=== PATIENT | female | born 1935 | race Caucasian/White ===

== ENCOUNTER → 2016-10-13 | Outpatient (REF) | payer MEDICARE ==
[2016-10-13 14:09] LABS: PERCENT SATURATION 7.5 % (13.2-37.4)
== END ==
LOC: M LAB REF 13:17
PROVIDERS: ATTEND Internal Medicine Nephrology
DX: D50.9 Iron deficiency anemia, unspecified (principal)

== ENCOUNTER → 2016-10-14 | Outpatient (REF) | payer MEDICARE ==
[2016-10-14 14:42] LABS: PERCENT SATURATION 28.2 % (13.2-37.4)
== END ==
LOC: M LAB REF 13:34
PROVIDERS: ATTEND Internal Medicine
DX: D64.9 Anemia, unspecified (principal)

== ENCOUNTER 2016-10-28 09:04 | Outpatient (CLI) | payer MEDICARE ==
[~2016-10-28] VITALS: Ht 149.9 cm; Wt 62.7 kg
[2016-10-28] MEDS ORDERED: IRON SUCROSE 25 MG in NS 50 ML IV ONE (09:30)
[2016-10-28] MEDS ORDERED: IRON SUCROSE 475 MG in NS 250 ML IV ONE (10:30)
[2016-10-28] MEDS ORDERED: NOVOINJ3 SC (14:17)
[2016-10-28] MEDS ORDERED: LASI40TA PO (14:17)
[2016-10-28] MEDS ORDERED: CHRO200C PO (14:17)
[2016-10-28] MEDS ORDERED: CALCTAB75 PO (14:17)
[2016-10-28] MEDS ORDERED: RENV0.8P PO (14:17)
[2016-10-28] MEDS ORDERED: LANTINJ4 SC (14:17)
[2016-10-28] MEDS ORDERED: FERR1CAP2 PO (14:17)
[2016-10-28] MEDS ORDERED: SYNT112T2 PO (14:17)
[2016-10-28] MEDS ORDERED: ASPI81TA85 PO (14:17)
[2016-10-28] MEDS ORDERED: CALC1CAP31 PO (14:17)
== END 2016-10-28 15:00 | disposition home or self-care (01) ==
LOC: M INFU 09:04
PROVIDERS: ATTEND Internal Medicine Nephrology
DX: D50.9 Iron deficiency anemia, unspecified (principal); Z79.899 Other long term (current) drug therapy; Z79.4 Long term (current) use of insulin; Z79.82 Long term (current) use of aspirin; Z88.2 Allergy status to sulfonamides; Z88.1 Allergy status to other antibiotic agents
CPT/HCPCS: 96365; 96366; J1756

== ENCOUNTER → 2016-12-16 | Outpatient (CLI) | payer MEDICARE ==
[~2016-12-16] MED LIST: ASPI81TA85 PO; CALC1CAP31 PO; CALCTAB75 PO; CHRO200C PO; FERR1CAP2 PO; LANTINJ4 SC; LASI40TA PO; NOVOINJ3 SC; RENV0.8P PO; SYNT112T2 PO
--- NOTE | 2016-12-16 13:54 | REP ---
MRA CAROTIDS WITHOUT CONTRAST: HISTORY: Carotid occlusion. Unenhanced 2D [id number] MR angiography was performed at the level of the carotid bifurcations. The distal right common carotid artery and origins of the right external and internal carotid arteries are normal. There are no atherosclerotic lesions. There is severe stenosis of 90% of the distal left common carotid artery. There is severe stenosis and 90% of the left internal carotid artery at its origin. There is moderate stenosis of 60% of the left external carotid artery at its origin. The vertebral arteries are patent. The right vertebral artery is dominant. IMPRESSION: 1. There is severe stenosis of 90% of the distal left common carotid artery. 2. There is severe stenosis of 90% of the left internal carotid artery at its origin. Signed by Ramy Herring MD 12/16/2016 02:01 P
== END ==
LOC: M RAD 12:15
PROVIDERS: ATTEND Surgery Vascular Surgery
DX: I65.22 Occlusion and stenosis of left carotid artery (principal)

== ENCOUNTER 2017-03-08 10:18 | Emergency (ER) | payer MEDICARE ==
[~2017-03-08] VITALS: Ht 147.3 cm; Wt 60.1 kg
[2017-03-08] MEDS ORDERED: TYLE325T5 PO (10:40)
[2017-03-08] MEDS ORDERED: ONDANSETRON 4MG/2ML VIAL (J2405) IV ONE (11:15)
[2017-03-08] MEDS ORDERED: MORPHINE 2 MG/ML 1ML SYRINGE IV ONE ×2 (11:15→13:30)
[2017-03-08 11:29] LABS: BASO % 0.3 % (0.0-1.0); EOS # 0.2 K/mm3 (0.0-0.50); EOS % 2.4 % (0.0-3.0); LARGE UNSTAINED CELL # 0.1 K/mm3 (0.0-0.4); LARGE UNSTAINED CELL % 1.1 % (0.0-4.0); LYMPH # 0.8 K/mm3 (1.5-4.5); LYMPH % 7.4 % (24.0-44.0); MEAN CORPUSCULAR HEMOGLOBIN 30.9 pg (27.0-33.0); MEAN CORPUSCULAR HGB CONC 32.5 g/dl (32.0-36.5); MONO # 0.6 K/mm3 (0.0-0.8); MONO % 6.3 % (0.0-5.0); NEUTROPHILS # 7.3 K/mm3 (1.8-7.7); NEUTROPHILS % 82.6 % (36.0-66.0); PLATELET COUNT, AUTOMATED 198 k/mm3 (150-450); RED CELL DISTRIBUTION WIDTH 12.6 % (11.5-14.5); WHITE BLOOD COUNT 8.9 K/mm3 (4.0-10.0)
[2017-03-08 11:54] LABS: ALBUMIN 3.8 GM/DL (3.2-5.2); ALBUMIN/GLOBULIN RATIO 1.09 (1.00-1.93); ALKALINE PHOSPHATASE 84 U/L (45-117); ALT/SGPT 17 U/L (12-78); ANION GAP 9 MEQ/L (8-16); AST/SGOT 14 U/L (15-37); BILIRUBIN,DIRECT < 0.1 MG/DL (0.0-0.2); BILIRUBIN,TOTAL 0.5 MG/DL (0.2-1.0); BLOOD UREA NITROGEN 36 MG/DL (7-18); CALCIUM LEVEL 9.1 MG/DL (8.8-10.2); CARBON DIOXIDE LEVEL 25 MEQ/L (21-32); CHLORIDE LEVEL 104 MEQ/L (98-107); CREATININE FOR GFR 1.91 MG/DL (0.55-1.02); GLOMERULAR FILTRATION RATE 26.8 (>32); GLUCOSE, FASTING 170 MG/DL (83-110); POTASSIUM SERUM 4.3 MEQ/L (3.5-5.1); SODIUM LEVEL 138 MEQ/L (136-145); TOTAL PROTEIN 7.3 GM/DL (6.4-8.2)
--- NOTE | 2017-03-08 12:31 | REP ---
CT ABDOMEN AND PELVIS WITHOUT IV CONTRAST: CT abdomen and pelvis performed without oral or IV contrast. Sagittal and coronal reconstruction images are performed. There are chronic fibrotic changes of the lung bases. Calcified granuloma is seen in the right middle lobe. The liver, gallbladder, adrenals and pancreas are grossly unremarkable. The spleen demonstrates a nodule probably representing a hemangioma measuring 2 cm in diameter. A couple of tiny calcifications are seen at the margins of the nodule. There is no hydronephrosis of either kidney. Proximal ureters are not dilated. No renal stones are seen. There are bilateral hip prosthesis causing adjacent streak artifact obscuring inferior pelvic structures including the bladder and distal ends of the ureters. There are atherosclerotic calcifications of the abdominal aorta without aneurysm. No adenopathy is seen. No free air or free fluid is seen. There is sigmoid and left colonic diverticulosis. No thickening is seen of the visualized bowel loops. There is a large hiatal hernia. IMPRESSION: Large hiatal hernia. Probably splenic hemangioma. No renal stones and no hydroureteronephrosis. However, the distal ends of the ureters and the bladder are obscured by adjacent metallic artifact from metallic hip prostheses. Colonic diverticulosis. No other acute abnormality identified. Signed by Cristian López MD 03/08/2017 04:26 P
[2017-03-08] MEDS ORDERED: PERC5TAB12 PO (13:45)
[2017-03-08 14:31] VITALS: BP 134/63
--- NOTE | 2017-03-09 10:57 | ED PDOC ---
Post-Departure Follow-Up dr orozco faxed formal report of ct abd/p for fu peñag Delvis Macario MD Mar 09, 2017 10:57
== END 2017-03-08 14:33 | disposition home or self-care (01) ==
LOC: M ED 10:18
DX: R10.9 Unspecified abdominal pain (principal); N18.9 Chronic kidney disease, unspecified; E11.9 Type 2 diabetes mellitus without complications; Z86.73 Personal history of transient ischemic attack (TIA), and cerebral infarction without residual deficits
CPT/HCPCS: 74176; 80048; 80076; 81001; 83690; 85025; 87086; 93041; 94760; 96374; 96375; 96376; 99284; J2405

== ENCOUNTER 2017-04-08 20:20 | Emergency (ER) | payer MEDICARE ==
[~2017-04-08] VITALS: Ht 147.3 cm; Wt 60.0 kg
[~2017-04-08 20:20] MED LIST changes: +PERC5TAB12 PO; +TYLE325T5 PO
[2017-04-08] MEDS ORDERED: MECLIZINE 25 MG TABLET PO ONE (21:15)
[2017-04-08 22:33] LABS: BASO % 0.5 % (0.0-1.0); EOS # 0.1 K/mm3 (0.0-0.50); LARGE UNSTAINED CELL # 0.1 K/mm3 (0.0-0.4); LARGE UNSTAINED CELL % 1.3 % (0.0-4.0); LYMPH # 0.6 K/mm3 (1.5-4.5); LYMPH % 10.1 % (24.0-44.0); MEAN CORPUSCULAR HEMOGLOBIN 30.8 pg (27.0-33.0); MEAN CORPUSCULAR HGB CONC 33.6 g/dl (32.0-36.5); MEAN CORPUSCULAR VOLUME 91.6 fl (80.0-96.0); MONO # 0.4 K/mm3 (0.0-0.8); MONO % 6.9 % (0.0-5.0); NEUTROPHILS # 4.7 K/mm3 (1.8-7.7); NEUTROPHILS % 80.1 % (36.0-66.0); PLATELET COUNT, AUTOMATED 211 k/mm3 (150-450); RED CELL DISTRIBUTION WIDTH 12.4 % (11.5-14.5); WHITE BLOOD COUNT 5.8 K/mm3 (4.0-10.0)
--- NOTE | 2017-04-08 22:40 | REPUSA ---
CLINICAL HISTORY: Vertigo. TECHNIQUE: Multiple axial CT images were obtained through the brain without IV contrast material. COMMENTS: There is normal configuration of sella turcica. There are no intra or extra-axial collections. There is no mass effect or midline shift. There is no evidence of hematoma formation. No hydrocephalus is p resent. The ventricles are symmetrical. No abnormal calcifications are present. There is diffuse age-appropriate cerebellar and cerebral atrophy with proportionally dilated ventricl es and cortical sulci. There are bilateral periventricular and subcortical white matter hypolucencies compatible with mild c hronic microvascular disease. Otherwise, no significant focal abnormalities are seen either in the posterior fossa or supratentoria l compartment. IMPRESSION: 1. Age-appropriate cerebellar and cerebral atrophy. 2. Mild chronic microvascular disease. 3. No evidence of acute intracranial pathology. Thank you for your kind referral of this patient.
--- NOTE | 2017-04-08 22:40 | REPUSA ---
CLINICAL HISTORY: Vertigo. COMMENTS: A single frontal view of the chest was obtained without prior studies for comparison. The cardiac silhouette is within normal limits. There is no evidence of hilar enlargement. There is no evidence of a pulmonary nodule, infiltrate or atelectasis. There is no pleural effusion. No bony abnormalities are seen. IMPRESSION: Unremarkable chest. Thank you for your kind referral of this patient.
[2017-04-08 22:53] LABS: ANION GAP 6 MEQ/L (8-16); BLOOD UREA NITROGEN 24 MG/DL (7-18); CALCIUM LEVEL 9.5 MG/DL (8.8-10.2); CARBON DIOXIDE LEVEL 26 MEQ/L (21-32); CHLORIDE LEVEL 108 MEQ/L (98-107); CREATININE FOR GFR 1.48 MG/DL (0.55-1.02); FREE T4 0.97 NG/DL (0.76-1.46); GLOMERULAR FILTRATION RATE 35.9 (>32); GLUCOSE, FASTING 98 MG/DL (83-110); POTASSIUM SERUM 4.3 MEQ/L (3.5-5.1); SODIUM LEVEL 140 MEQ/L (136-145)
[2017-04-08] MEDS ORDERED: NS 1,000 ML IV SCH (23:54)
[2017-04-09] MEDS ORDERED: HALOPERIDOL 5 MG/ML VIAL (J1630) IV STA (01:26)
[2017-04-09] MEDS ORDERED: diphenhydrAMINE INJ 50MG/ML VIAL (J1200) IV STA (01:26)
[2017-04-09] MEDS ORDERED: NS 500 ML IV ONE (01:30)
[2017-04-09] MEDS ORDERED: REGL10TA6 PO (04:29)
[2017-04-09 05:06] VITALS: BP 178/71
--- NOTE | 2017-04-09 07:16 | ECGEPIP ---
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
== END 2017-04-09 05:07 | disposition home or self-care (01) ==
LOC: M ED 20:20 → EDBD 20:20 → M ED 04-09 05:07
DX: R42 Dizziness and giddiness (principal); E11.9 Type 2 diabetes mellitus without complications; D64.9 Anemia, unspecified; N18.9 Chronic kidney disease, unspecified
CPT/HCPCS: 36415; 70450; 71010; 80048; 82550; 82553; 84439; 84443; 84484; 85025; 93005; 93041; 94760; 96374; 96375; 99285; J1200; J1630

== ENCOUNTER → 2017-05-16 | Outpatient (REF) | payer MEDICARE ==
[~2017-05-16] MED LIST changes: +REGL10TA6 PO
[2017-05-16 12:22] LABS: BASO % 0.7 % (0.0-1.0); EOS # 0.2 K/mm3 (0.0-0.50); EOS % 4.1 % (0.0-3.0); LARGE UNSTAINED CELL # 0.1 K/mm3 (0.0-0.4); LARGE UNSTAINED CELL % 1.7 % (0.0-4.0); LYMPH # 0.9 K/mm3 (1.5-4.5); LYMPH % 13.9 % (24.0-44.0); MEAN CORPUSCULAR HGB CONC 32.5 g/dl (32.0-36.5); MEAN CORPUSCULAR VOLUME 92.4 fl (80.0-96.0); MONO # 0.5 K/mm3 (0.0-0.8); NEUTROPHILS # 4.3 K/mm3 (1.8-7.7); NEUTROPHILS % 71.7 % (36.0-66.0); PLATELET COUNT, AUTOMATED 192 k/mm3 (150-450); RED CELL DISTRIBUTION WIDTH 12.6 % (11.5-14.5)
[2017-05-16 13:05] LABS: ERYTHROCYTE SEDIMENTATION RATE 30 mm/hr (0-30)
== END ==
LOC: M LABDRAW1 11:45
PROVIDERS: ATTEND Orthopaedic Surgery
DX: M54.5 Low back pain (principal)

== ENCOUNTER → 2017-11-22 | Outpatient (CLI) | payer MEDICARE | LOC: M WHC 11:04 | DX: Z01.419 Encounter for gynecological examination (general) (routine) without abnormal findings (principal); Z12.31 Encounter for screening mammogram for malignant neoplasm of breast (principal); Z78.0 Asymptomatic menopausal state; Z80.0 Family history of malignant neoplasm of digestive organs; Z12.12 Encounter for screening for malignant neoplasm of rectum; N95.2 Postmenopausal atrophic vaginitis | CPT/HCPCS: 77067 ==

== ENCOUNTER 2017-12-08 08:47 | Outpatient (CLI) | payer MEDICARE ==
[2017-12-08] MEDS ORDERED: FUROSEMIDE 20 MG/2 ML VIAL (J1940) IV (10:00)
[2017-12-08] MEDS: diphenhydrAMINE 25 MG CAP PO (10:08)
[2017-12-08 10:09] LABS: IMMEDIATE SPIN CROSSMATCH 1 1
== END 2017-12-08 13:40 | disposition home or self-care (01) ==
LOC: M INFU 08:47
DX: D64.9 Anemia, unspecified (principal); N18.4 Chronic kidney disease, stage 4 (severe); I11.9 Hypertensive heart disease without heart failure; E03.9 Hypothyroidism, unspecified; E11.9 Type 2 diabetes mellitus without complications; E32.9 Disease of thymus, unspecified; I50.9 Heart failure, unspecified; Z79.899 Other long term (current) drug therapy; Z79.4 Long term (current) use of insulin; Z88.8 Allergy status to other drugs, medicaments and biological substances
CPT/HCPCS: 36430

== ENCOUNTER → 2017-12-15 | Outpatient (CLI) | payer MEDICARE ==
[2017-12-15] MEDS: IRON SUCROSE 25 MG in NS 50 ML IV (13:35)
[2017-12-15] MEDS: IRON SUCROSE 475 MG in NS 250 ML IV (14:35)
== END ==
LOC: M INFU 12:24
DX: D50.9 Iron deficiency anemia, unspecified (principal); I12.9 Hypertensive chronic kidney disease with stage 1 through stage 4 chronic kidney disease, or unspecified chronic kidney disease; I50.9 Heart failure, unspecified; N18.4 Chronic kidney disease, stage 4 (severe); E03.9 Hypothyroidism, unspecified; M54.2 Cervicalgia; F32.9 Major depressive disorder, single episode, unspecified; Z79.4 Long term (current) use of insulin; Z79.891 Long term (current) use of opiate analgesic; Z79.899 Other long term (current) drug therapy; Z88.8 Allergy status to other drugs, medicaments and biological substances
CPT/HCPCS: J1756

== ENCOUNTER → 2018-01-11 | Outpatient (REF) | payer MEDICARE ==
[2018-01-11 14:15] LABS: FERRITIN 71 NG/ML (8-252); IRON (FE) 54 UG/DL (50-170); PERCENT SATURATION 15.8 % (13.2-45.0); TOTAL IRON BINDING CAPACITY 341 UG/DL (250-450)
== END ==
LOC: M LAB REF 13:37
DX: D50.9 Iron deficiency anemia, unspecified (principal)
CPT/HCPCS: 83550

== ENCOUNTER 2018-08-02 08:24 | Outpatient (CLI) | payer MEDICARE ==
[2018-08-02] MEDS: IRON SUCROSE 25 MG in NS 50 ML IV (09:30)
[2018-08-02] MEDS: IRON SUCROSE 475 MG in NS 250 ML IV (10:38)
== END 2018-08-02 14:15 | disposition home or self-care (01) ==
LOC: M INFU 08:24
DX: D50.9 Iron deficiency anemia, unspecified (principal); Z88.2 Allergy status to sulfonamides; Z88.8 Allergy status to other drugs, medicaments and biological substances
CPT/HCPCS: J1756

== ENCOUNTER → 2018-08-17 | Outpatient (REF) | payer MEDICARE ==
[~2018-08-17] MED LIST changes: -CHRO200C PO; +CHRO200C2 PO; -LASI40TA PO; +LASI40TA9 PO
[2018-08-17 17:29] LABS: PERCENT SATURATION 19.7 % (13.2-45.0)
== END ==
LOC: M LAB REF 16:58
PROVIDERS: ATTEND Internal Medicine
DX: D64.9 Anemia, unspecified (principal)

== ENCOUNTER → 2018-10-09 | Outpatient (REF) | payer MEDICARE ==
[2018-10-09 18:48] LABS: BASO % 0.6 % (0.0-1.0); EOS # 0.1 10^3/uL (0.0-0.50); EOS % 1.7 % (0.0-3.0); HEMATOCRIT 34.9 % (36.0-47.0); HEMOGLOBIN 10.7 g/dl (12.0-15.5); LYMPH # 0.8 10^3/uL (1.5-4.5); LYMPH % 10.6 % (24.0-44.0); MEAN CORPUSCULAR HEMOGLOBIN 28.8 pg (27.0-33.0); MEAN CORPUSCULAR HGB CONC 30.7 g/dl (32.0-36.5); MEAN CORPUSCULAR VOLUME 94.1 fl (80.0-96.0); MONO # 0.7 10^3/uL (0.0-0.8); MONO % 9.8 % (0.0-5.0); NEUTROPHILS # 5.6 10^3/uL (1.8-7.7); PLATELET COUNT, AUTOMATED 259 10^3/uL (150-450); RED BLOOD COUNT 3.71 10^6/uL (4.00-5.40); WHITE BLOOD COUNT 7.2 10^3/uL (4.0-10.0)
[2018-10-09 19:00] LABS: ALBUMIN 4.2 GM/DL (3.2-5.2); BILIRUBIN,TOTAL 0.6 MG/DL (0.2-1.0); CALCIUM LEVEL 9.3 MG/DL (8.8-10.2); CREATININE FOR GFR 1.46 MG/DL (0.55-1.30); FREE T4 0.91 NG/DL (0.76-1.46); GLOMERULAR FILTRATION RATE 36.4 (>32); POTASSIUM SERUM 4.2 MEQ/L (3.5-5.1); THYROID STIMULATING HORMONE 4.78 uIU/ML (0.358-3.740); TOTAL PROTEIN 7.2 GM/DL (6.4-8.2)
[2018-10-09 19:29] LABS: HEMOGLOBIN A1c 7.4 %
== END ==
LOC: M LABDRAW1 12:17
PROVIDERS: ATTEND Physician Assistant
DX: E03.9 Hypothyroidism, unspecified (principal); N18.4 Chronic kidney disease, stage 4 (severe); E11.21 Type 2 diabetes mellitus with diabetic nephropathy; D63.1 Anemia in chronic kidney disease; D50.9 Iron deficiency anemia, unspecified

== ENCOUNTER → 2018-10-09 | Outpatient (REF) | payer MEDICARE ==
[2018-10-09 18:54] LABS: FERRITIN 47 NG/ML (8-252); IRON (FE) 60 UG/DL (50-170)
[2018-10-09 19:05] LABS: HEMATOCRIT 34.9 % (36.0-47.0); HEMOGLOBIN 10.7 g/dl (12.0-15.5); MEAN CORPUSCULAR HEMOGLOBIN 28.8 pg (27.0-33.0); MEAN CORPUSCULAR HGB CONC 30.7 g/dl (32.0-36.5); MEAN CORPUSCULAR VOLUME 94.1 fl (80.0-96.0); PLATELET COUNT, AUTOMATED 259 10^3/uL (150-450); RED BLOOD COUNT 3.71 10^6/uL (4.00-5.40); WHITE BLOOD COUNT 7.2 10^3/uL (4.0-10.0)
== END ==
LOC: M LABDRAW1 12:19
PROVIDERS: ATTEND Physician Assistant Medical
DX: D50.9 Iron deficiency anemia, unspecified (principal)

== ENCOUNTER → 2018-12-19 | Outpatient (REF) | payer MEDICARE ==
[2018-12-19 18:21] LABS: BASO # 0.1 10^3/uL (0.0-0.2); BASO % 0.8 % (0.0-1.0); EOS # 0.2 10^3/uL (0.0-0.50); EOS % 3.3 % (0.0-3.0); HEMATOCRIT 32.6 % (36.0-47.0); HEMOGLOBIN 10.4 g/dl (12.0-15.5); LYMPH % 15.6 % (24.0-44.0); MEAN CORPUSCULAR HEMOGLOBIN 29.3 pg (27.0-33.0); MEAN CORPUSCULAR HGB CONC 31.9 g/dl (32.0-36.5); MEAN CORPUSCULAR VOLUME 91.8 fl (80.0-96.0); MONO # 0.8 10^3/uL (0.0-0.8); MONO % 11.6 % (0.0-5.0); NEUTROPHILS # 4.6 10^3/uL (1.8-7.7); NEUTROPHILS % 68.2 % (36.0-66.0); PLATELET COUNT, AUTOMATED 234 10^3/uL (150-450); RED BLOOD COUNT 3.55 10^6/uL (4.00-5.40); WHITE BLOOD COUNT 6.7 10^3/uL (4.0-10.0)
[2018-12-19 18:31] LABS: FREE T4 0.99 NG/DL (0.76-1.46); PERCENT SATURATION 14.6 % (13.2-45.0); THYROID STIMULATING HORMONE 2.41 uIU/ML (0.358-3.740)
== END ==
LOC: M LABDRAW1 16:13
PROVIDERS: ATTEND Physician Assistant
DX: N18.9 Chronic kidney disease, unspecified (principal); E03.9 Hypothyroidism, unspecified; D63.1 Anemia in chronic kidney disease

== ENCOUNTER 2019-02-02 18:45 | Emergency (ER) | payer MEDICARE ==
[~2019-02-02] VITALS: Ht 147.3 cm; Wt 57.3 kg
[2019-02-02] MEDS ORDERED: PANTOPRAZOLE 40MG INJ (PROTONIX) (C9113) IV ONE (19:15)
[2019-02-02] MEDS ORDERED: ONDANSETRON 4MG/2ML VIAL (J2405) IV ONE (19:15)
[2019-02-02] MEDS ORDERED: NS 1,000 ML IV ONE (19:15)
[2019-02-02 19:32] LABS: BASO % 0.1 % (0.0-1.0); HEMATOCRIT 34.9 % (36.0-47.0); HEMOGLOBIN 11.6 g/dl (12.0-15.5); LYMPH # 0.5 10^3/uL (1.5-4.5); LYMPH % 3.1 % (24.0-44.0); MEAN CORPUSCULAR HEMOGLOBIN 29.6 pg (27.0-33.0); MEAN CORPUSCULAR HGB CONC 33.2 g/dl (32.0-36.5); MONO # 1.5 10^3/uL (0.0-0.8); MONO % 9.3 % (0.0-5.0); NEUTROPHILS # 14.2 10^3/uL (1.8-7.7); NEUTROPHILS % 87.1 % (36.0-66.0); PLATELET COUNT, AUTOMATED 318 10^3/uL (150-450); RED BLOOD COUNT 3.92 10^6/uL (4.00-5.40); WHITE BLOOD COUNT 16.3 10^3/uL (4.0-10.0)
[2019-02-02] MEDS ORDERED: LABETALOL HCL 100 MG/20 ML VIAL IV STA (20:12)
[2019-02-02] MEDS ORDERED: HumuLIN R (REGULAR) INSULIN (NovoLIN R) **100U/ML** PER UNIT IV ONE ×2 (20:15→22:00)
[2019-02-02 20:19] LABS: ALBUMIN 3.9 GM/DL (3.2-5.2); BILIRUBIN,DIRECT 0.2 MG/DL (0.0-0.2); BILIRUBIN,TOTAL 1.1 MG/DL (0.2-1.0); CK-MB VALUE MASS 7.7 NG/ML (<3.6); MB/CK RELATIVE INDEX 3.68 (< OR =4); TOTAL PROTEIN 7.6 GM/DL (6.4-8.2); TROPONIN I 0.57 NG/ML (< 0.10)
[2019-02-02] MEDS ORDERED: LISI-1046 PO (20:21)
[2019-02-02] MEDS ORDERED: NON-325T5 PO (20:21)
[2019-02-02] MEDS ORDERED: BASA100I SC (20:21)
[2019-02-02] MEDS ORDERED: CALCTAB41 PO (20:21)
[2019-02-02] MEDS ORDERED: RANI150T14 PO (20:21)
[2019-02-02 20:44] VITALS: BP 153/70
[2019-02-02] MEDS: NS 1,000 ML IV SCH (21:20)
[2019-02-03 01:37] LABS: MB/CK RELATIVE INDEX 3.25 (< OR =4); TROPONIN I 0.8 NG/ML (< 0.10)
[2019-02-03] MEDS: NS 1,000 ML IV SCH (02:18)
[2019-02-03 02:33] LABS: CALCIUM LEVEL 7.9 MG/DL (8.8-10.2); CREATININE FOR GFR 1.57 MG/DL (0.55-1.30); GLOMERULAR FILTRATION RATE 33.4 (>32); POTASSIUM SERUM 4.3 MEQ/L (3.5-5.1)
[2019-02-03] MEDS ORDERED: ASPIRIN 325 MG TAB PO ONE (04:00)
[2019-02-03 06:19] VITALS: BP 152/65
--- NOTE | 2019-02-03 08:23 | REP ---
ABDOMEN, THREE VIEWS: HISTORY: Abdominal pain. COMPARISON: 04/08/2017 A small amount of air is present in the intestine. Several air fluid levels are present. There are no dilated loops of intestine. There is no pneumoperitoneum. The lungs are clear. IMPRESSION: Nonspecific bowel gas pattern. Electronically Signed by Ramy Herring MD 02/03/2019 08:52 A
--- NOTE | 2019-02-03 09:15 | ECGEPIP ---
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
--- NOTE | 2019-02-03 09:17 | ECGEPIP ---
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
== END 2019-02-03 06:22 | disposition short-term general hospital (02) ==
LOC: M ED 18:45 → EDBD 18:45 → M ED 02-03 06:22
DX: R79.89 Other specified abnormal findings of blood chemistry (principal); R11.2 Nausea with vomiting, unspecified; E11.9 Type 2 diabetes mellitus without complications; I10 Essential (primary) hypertension; N28.9 Disorder of kidney and ureter, unspecified; K21.9 Gastro-esophageal reflux disease without esophagitis; D64.9 Anemia, unspecified; Z79.899 Other long term (current) drug therapy; Z79.4 Long term (current) use of insulin; Z88.1 Allergy status to other antibiotic agents; Z88.2 Allergy status to sulfonamides
CPT/HCPCS: 36415; 74021; 80047; 80048; 80076; 81001; 82550; 82553; 83690; 84484; 85025; 93005; 93041; 96361; 96374; 96375; 96376; 99285; C9113; J2405

== ENCOUNTER 2019-02-19 11:38 | Inpatient (IN) | payer MEDICARE ==
[~2019-02-19] VITALS: Ht 144.8 cm; Wt 56.7 kg
[~2019-02-19 11:38] MED LIST changes: +BASA100I SC; +CALCTAB41 PO; +LISI-1046 PO; +NON-325T5 PO; +RANI150T14 PO
[2019-02-19] MEDS ORDERED: FERR32TA PO (11:47)
[2019-02-19] MEDS ORDERED: LEVO150T7 PO (11:47)
[2019-02-19] MEDS ORDERED: NIFE30TA50 PO (11:47)
[2019-02-19] MEDS: NS 1,000 ML IV SCH ×2 (12:34→16:30)
[2019-02-19 12:39] LABS: BASO # 0.1 10^3/uL (0.0-0.2); BASO % 0.7 % (0.0-1.0); EOS # 0.2 10^3/uL (0.0-0.50); EOS % 2.2 % (0.0-3.0); HEMATOCRIT 29.4 % (36.0-47.0); HEMOGLOBIN 9.2 g/dl (12.0-15.5); LYMPH # 0.9 10^3/uL (1.5-4.5); LYMPH % 9.9 % (24.0-44.0); MEAN CORPUSCULAR HEMOGLOBIN 28.2 pg (27.0-33.0); MEAN CORPUSCULAR HGB CONC 31.3 g/dl (32.0-36.5); MEAN CORPUSCULAR VOLUME 90.2 fl (80.0-96.0); MONO % 10.9 % (0.0-5.0); NEUTROPHILS # 6.6 10^3/uL (1.8-7.7); NEUTROPHILS % 75.6 % (36.0-66.0); PLATELET COUNT, AUTOMATED 507 10^3/uL (150-450); RED BLOOD COUNT 3.26 10^6/uL (4.00-5.40); WHITE BLOOD COUNT 8.7 10^3/uL (4.0-10.0)
[2019-02-19 12:50] LABS: PROTHROMBIN TIME 12.9 SECONDS (11.8-14.0)
[2019-02-19 13:04] LABS: ALBUMIN 2.5 GM/DL (3.2-5.2); ALT/SGPT 18 U/L (12-78); BILIRUBIN,DIRECT 0.1 MG/DL (0.0-0.2); BILIRUBIN,TOTAL 0.2 MG/DL (0.2-1.0); CK-MB VALUE MASS < 1.0 NG/ML (<3.6); CPK CREATINE PHOSPHOKINASE 24 U/L (26-192); LIPASE 687 U/L (73-393); MB/CK RELATIVE INDEX 4.17 (< OR =4); TOTAL PROTEIN 6.2 GM/DL (6.4-8.2); TROPONIN I < 0.02 NG/ML (< 0.10)
--- NOTE | 2019-02-19 13:04 | REP ---
Clinical: Abdominal pain Technique: Supine and cross-table lateral views of the abdomen and pelvis. Findings: Bowel gas pattern is nonspecific. Postsurgical changes are appreciated with suture material in the right mid abdomen and surgical chelsea midline. Evidence for prior posterior lumbar fusion and bilateral hip replacement. Skeletal structures demonstrate osteopenia and degenerative changes. Impression: Nonspecific bowel gas pattern. Electronically Signed by Marco A Hayes MD 02/19/2019 12:56 P
--- NOTE | 2019-02-19 13:18 | REP ---
Clinical: Abdominal pain. Evaluate for abscess. Technique: Real time elaine scale and color evaluation using linear high frequency transducer. Findings: Directed ultrasound examination at the site of previous surgical incision demonstrates mild subcutaneous edema with minimal amount of suspected insinuating fluid but no discrete drainable collection/abscess. Impression: Subcutaneous edema and minimal amount of subcutaneous stranding fluid without definable drainable collection/abscess. Electronically Signed by Marco A Hayes MD 02/19/2019 01:09 P
[2019-02-19 13:36] LABS: BLOOD UREA NITROGEN 16 MG/DL (7-18); CALCIUM LEVEL 8.9 MG/DL (8.8-10.2); CARBON DIOXIDE LEVEL 29 MEQ/L (21-32); CHLORIDE LEVEL 101 MEQ/L (98-107); GLOMERULAR FILTRATION RATE 41.5 (>32); GLUCOSE, FASTING 149 MG/DL (70-100); POTASSIUM SERUM 4.1 MEQ/L (3.5-5.1); SODIUM LEVEL 138 MEQ/L (136-145)
--- NOTE | 2019-02-19 13:48 | REP ---
Clinical: Acute cerebrovascular accident. Comparison: 04/08/2017 . Findings: Age-related atrophy and microvascular ischemic changes are appreciated. The ventricles and sulci are symmetric. López-white differentiation is maintained. There is no evidence for acute intracranial hemorrhage, mass/mass effect, pathology or infarction. No extra-axial fluid collection. Calvarium is intact. Paranasal sinuses and mastoid air cells are clear. Impression: Age related atrophy and microvascular ischemic changes. No acute intracranial hemorrhage, infarction, or mass/mass effect. Electronically Signed by Marco A Hayes MD 02/19/2019 01:40 P
[2019-02-19] MEDS ORDERED: GLUCOSE 4 GM CHEW TABLET PO PRN (15:30)
[2019-02-19] MEDS ORDERED: GLUCAGON FOR INJ 1 MG VIAL (J1610) SC PRN (15:30)
[2019-02-19] MEDS ORDERED: DEXTROSE 50% 50 ML SYRINGE IV PRN (15:30)
[2019-02-19 16:40] VITALS: BP 156/62
--- NOTE | 2019-02-19 17:04 | HPEPDOC ---
General Date of Admission 02/19/19 Date of Service: Feb 19, 2019 Primary Care Physician: Maryann Nolan Attending Physician: RAMSEY SAENZ DO Chief Complaint The patient is a 83-year-old female admitted with a reason for visit of weakness. Source: Patient, Family Exam Limitations: No limitations History of Present Illness 83 yo female who had colon resection 2 weeks ago in [place] for obstructing colon cancer brought into ED by family because of increasing weakness. Daughter states patient has been staying in bed except to get up for bathroom and to eat meals because "too weak". Patient states poor appetite. She states no nausea, no vomiting, some difficulty swallowing large pills and yesterday abdomen pain (relief with tylenol). States today abdomen pain is nagging, dull, achy and worse with moving in bed. Maximilian still in place and daughter noticed some drainage. Yesterday daytime had normal stool but Last night patient had watery diarrhea. Last antibiotic use post operatively 2-3 weeks ago. She has had no reoccurance of diarrhea today. Daughter states on tuesday02/17/19, she had brief episode of "garbled" speech lasting few minutes and then was okay - daughter states similar to her " chronic recurrent TIA" syndrome. In the ED, CT Head showed no CVA, Abdomen xray and US showed no wound abscess. Home Medications Scheduled Ferrous Gluconate (Ferrous Gluconate) 324 Mg Tablet, 324 MG PO DAILY, (Reported) Furosemide (Lasix) 40 Mg Tab, 40 MG PO DAILY, (Reported) Insulin Aspart (Novolog Flexpen) 100 Unit/Ml Inj, 1 DOSE SC AC, (Reported) PER SLIDING SCALE Insulin Glargine,Hum.rec.anlog (Basaglar Kwikpen U-100) 100 Unit/1 Ml Ins uln.pen, 30 UNIT SC QHS, (Reported) Levothyroxine Sodium (Levothyroxine Sodium) 150 Mcg Tablet, 150 MCG PO QAM, (Reported) Nifedipine (Nifedipine ER) 30 Mg Tablet.er, 30 MG PO DAILY, (Reported) Scheduled PRN Acetaminophen (Acetaminophen) 325 Mg Tablet, 650 MG PO Q4H PRN for PAIN, (Reported) Allergies Coded Allergies: Sulfa (Sulfonamide Antibiotics) (Verified Allergy, Intermediate, HIVES, 02/19/19) lisinopril (Verified Adverse Reaction, Unknown, DIZZINESS, 02/19/19) Past Medical History Medical History Diabetes on chronic insulin without hyperglycemia but with hypoglycemia History of CHF - unknown type CKD stage IV (followed by Dr Rivers nephrology in [place]) GERD Hypothyroid HTN Colon Cancer stage II without metastasis Surgical History Colon resection 01/2019 Family History Significant Family History: No pertinent family hx mother from pancreatitis Social History * Smoker: non-smoker Alcohol: Denies lives with daughter - was completely independent prior to abdomen surgery A-FIB/CHADSVASC A-FIB History Current/History of A-Fib/PAF?: No Review of Systems Other systems 10 systems reviewed and negative except as per HPI Physical Examination General Exam: Positive: Alert, Cooperative, No Acute Distress Eye Exam: Positive: PERRLA, Conjunctiva & lids normal, EOMI ENT Exam: Positive: Atraumatic, Mucous membr. moist/pink, Pharynx Normal, Tongue Midline Neck Exam: Positive: Supple, +2 carotid pulse wo bruit Chest Exam: Positive: Clear to auscultation, Normal air movement; Negative: Rales, Rhonchi, Wheezing Heart Exam: Positive: Rate Normal, Regular Rhythm (no murmur) Abdomen Exam: Positive: Normal bowel sounds, Soft (NT ND no palpable masses, mild tenderness reproducible over incision/maximilian), Other (maximilian to mid abdomen intact with 1.5 cm wound dehisence. ) Extremity Exam: Positive: Normal pulses; Negative: Clubbing, Cyanosis, Edema Skin Exam: Positive: Nl turgor and temperature, Other skin issue (abdomen wound dehisense without cellulitis) Neuro Exam: Positive: Normal Speech, Other (decreased central muscle/core muscle strength, assistance needed rolling over in bed/sitting up; proximal thigh and forearm muscles weak bilaterally) Psych Exam: Positive: Mental status NL, Mood NL, Oriented x 3 Other physical findings maximilian and abdomen skin cleansed with hydrogen peroxide. 18 maximilian removed with good wound approximated EXCEPT for 1.5 cm wound dehinsence from below umbilicus (maximilian not holding skin together). Steri strips placed above and below wound dehiscence. no abdomen erythema ABDOMEN US:Impression: Subcutaneous edema and minimal amount of subcutaneous stranding fluid without definable drainable collection/abscess. Vital Signs Vital Signs Date Time Temp Pulse Resp B/P (MAP) Pulse Ox O2 Delivery O2 Flow Rate FiO2 02/19/19 13:53 72 97 6/24/19 13:41 166/74 (104) 02/19/19 11:38 98.1 16 Room Air Laboratory Data Labs 24H Laboratory Tests 2 02/19/19 12:25: Immature Granulocyte % (Auto) 0.7, White Blood Count 8.7, Red Blood Count 3.26L, Hemoglobin 9.2L, Hematocrit 29.4L, Mean Corpuscular Volume 90.2, Mean C orpuscular Hemoglobin 28.2, Mean Corpuscular Hemoglobin Concent 31.3L, Red Cell Distribution Width 14.6H, Platelet Count 507H, Neutrophils (%) (Auto) 75.6H, Lymphocytes (%) (Auto) 9.9L, Monocytes (%) (Auto) 10.9H, Eosinophils (%) (Auto) 2.2, Basophils (%) (Auto) 0.7, Neutrophils # (Auto) 6.6, Lymphocytes # (Auto) 0.9L, Monocytes # (Auto) 1.0H, Eosinophils # (Auto) 0.2, Basophils # (Auto) 0.1, Nucleated Red Blood Cells % (auto) 0.0, Prothrombin Time 12.9, Prothromb Time International Ratio 1.00, Anion Gap 8, Glomerular Filtration Rate 41.5, Calcium Level 8.9, Aspartate Amino Transf (AST/SGOT) 20, Alanine Aminotransferase (ALT/SGPT) 18, Alkaline Phosphatase 68, Total Bilirubin 0.2, Direct Bilirubin 0.1, Total Creatine Kinase 24L, Creatine Kinase MB < 1.0, Creatine Kinase MB Relative Index 4.17H, Troponin I < 0.02, Total Protein 6.2L, Albumin 2.5L, Albumin/Globulin Ratio 0.68L, Lipase 687H CBC/BMP Laboratory Tests 02/19/19 12:25 Red Blood Count 3.26 L, Mean Corpuscular Volume 90.2, Mean Corpuscular Hemoglobin 28.2, Mean Corpuscular Hemoglobin Concent 31.3 L, Red Cell Distribution Width 14.6 H, Neutrophils (%) (Auto) 75.6 H, Lymphocytes (%) (Auto) 9.9 L, Monocytes (%) (Auto) 10.9 H, Eosinophils (%) (Auto) 2.2, Basophils (%) (Auto) 0.7, Neutrophils # (Auto) 6.6, Lymphocytes # (Auto) 0.9 L, Monocytes # (Auto) 1.0 H, Eosinophils # (Auto) 0.2, Basophils # (Auto) 0.1 Microbiology wound culture obtained from abdomen Assessment/Plan Debility with proximal muscle weakness - post op (present on admission) PT/OT ARU consult. consider ST consult wound dehiscence - abdomen - cleansed with H2O2 , maximilian removed, culture obtained. no signs of cellulitis. NOT started on antibiotics Anemia - post op from GI blood loss - no need for transfusion at this time. monitor HTN - stable - daughter has been holding nifedipine because BP not elevated. Will not restart med and monitor History of CHF - currently euvolemic. no signs of CHF. Hold lasix. saline lock IVF History of CKD IV - followed by nephrology in [place]. monitor. hold nephrotoxic agents. lasix on hold. saline lock IVF No current signs of JHOANA Diabetes - on chronic insulin therapy with hypoglcyemia - daughter has decreased levemir at home from 30 to 15 units with improvement of hypoglcyemia and stabilization of blood sugar. continue to monitor. Check HgA1c in AM Elevated lipase due to recent bowel surgery Colon Cancer stage II - will need surgical follow up in [place] in 2-4 weeks Plan / VTE VTE Prophylaxis Ordered?: Yes (renal dose enoxaprin) Plan Anticipated Discharge: Sub Acute Rehab Advanced Directives: Do Not Resuscitate (DNR), Do Not Intubate (DNI) RAMSEY SAENZ DO Feb 19, 2019 14:31
[2019-02-19] MEDS: HumaLOG INSULIN (NovoLOG) PER UNIT SC SCH ×2 (17:18→21:00)
[2019-02-19] MEDS: LEVEMIR (INSULIN DETEMIR) 1 UNITS/0.01ML SC SCH (21:00)
[2019-02-19] MEDS ORDERED: LEVEMIR (INSULIN DETEMIR) 1 UNITS/0.01ML SC SCH (21:00)
[2019-02-19 22:00] VITALS: BP 156/60
[2019-02-20 06:00] VITALS: BP 152/70
[2019-02-20 06:07] LABS: HEMATOCRIT 25.5 % (36.0-47.0); HEMOGLOBIN 8.1 g/dl (12.0-15.5); MEAN CORPUSCULAR HEMOGLOBIN 28.4 pg (27.0-33.0); MEAN CORPUSCULAR HGB CONC 31.8 g/dl (32.0-36.5); MEAN CORPUSCULAR VOLUME 89.5 fl (80.0-96.0); PLATELET COUNT, AUTOMATED 445 10^3/uL (150-450); RED BLOOD COUNT 2.85 10^6/uL (4.00-5.40); WHITE BLOOD COUNT 7.3 10^3/uL (4.0-10.0)
[2019-02-20 06:23] LABS: HEMOGLOBIN A1c 8.6 %
[2019-02-20 06:29] LABS: BLOOD UREA NITROGEN 11 MG/DL (7-18); CALCIUM LEVEL 8.6 MG/DL (8.8-10.2); CARBON DIOXIDE LEVEL 27 MEQ/L (21-32); CHLORIDE LEVEL 109 MEQ/L (98-107); CREATININE FOR GFR 0.94 MG/DL (0.55-1.30); GLOMERULAR FILTRATION RATE > 60.0 (>32); GLUCOSE, FASTING 79 MG/DL (70-100); SODIUM LEVEL 141 MEQ/L (136-145)
[2019-02-20] MEDS: HumaLOG INSULIN (NovoLOG) PER UNIT SC SCH ×4 (07:26→21:00)
[2019-02-20] MEDS: ENOXAPARIN 30 MG/0.3 ML SYR (J1650) SC SCH (08:37)
[2019-02-20] MEDS ORDERED: ONDANSETRON 4MG/2ML VIAL (J2405) IV PRN (10:30)
--- NOTE | 2019-02-20 12:38 | IPNPDOC ---
Date Seen The patient was seen on 02/20/19. Progress Note SUBJECTIVE: no fever or chills overnight. per pt abdominal incision continues to have serous drainage, soaking the abdominal pad. "No pain right now," pt says while supine in bed on her back with a pillow on her abdomen. no nausea, vomiting. still c/o generalized weakness and difficulty getting up and ambulating. OBJECTIVE: Physical Examination VITALS: Pls see below General Exam: Positive: Alert, Cooperative, No Acute Distress Eye Exam: Positive: PERRLA, Conjunctiva & lids normal, EOMI ENT Exam: Positive: Atraumatic, Mucous membr. moist/pink, Pharynx Normal, Tongue Midline Neck Exam: Positive: Supple, +2 carotid pulse wo bruit Chest Exam: Positive: Clear to auscultation, Normal air movement; Negative: Rales, Rhonchi, Wheezing Heart Exam: Positive: Rate Normal, Regular Rhythm (no murmur) Abdomen Exam: Positive: Normal bowel sounds, Soft (NT ND no palpable masses, mild tenderness reproducible over incision/chelsea), Other (chelsea to mid abdomen intact with 1.5 cm wound dehisence. ) Extremity Exam: Positive: Normal pulses; Negative: Clubbing, Cyanosis, Edema Skin Exam: Positive: Nl turgor and temperature, Other skin issue (abdomen wound dehisense without cellulitis) Neuro Exam: Positive: Normal Speech, Other (decreased central muscle/core muscle strength, assistance needed rolling over in bed/sitting up; proximal thigh and forearm muscles weak bilaterally) Psych Exam: Positive: Mental status NL, Mood NL, Oriented x 3 chelsea and abdomen skin cleansed with hydrogen peroxide. 18 chelsea removed with good wound approximated EXCEPT for 1.5 cm wound dehinsence from below umbilicus (chelsea not holding skin together). Steri strips placed above and below wound dehiscence. no abdomen erythema LABORATORY DATA, IMAGING STUDIES, MICROBIOLOGY: pls see below ABDOMEN US:Impression: Subcutaneous edema and minimal amount of subcutaneous stranding fluid without definable drainable collection/abscess. Assessment/Plan: 83 yo female who had colon resection 2 weeks ago in [place] for obstructing colon cancer brought into ED by family because of increasing weakness. Daughter states patient has been staying in bed except to get up for bathroom and to eat meals because "too weak". Patient states poor appetite. She states no nausea, no vomiting, some difficulty swallowing large pills and yesterday abdomen pain (relief with tylenol). States today abdomen pain is nagging, dull, achy and worse with moving in bed. Chelsea still in place and daughter noticed some drainage. Yesterday daytime had normal stool but Last night patient had watery diarrhea. Last antibiotic use post operatively 2-3 weeks ago. She has had no reoccurance of diarrhea today. Daughter states on tuesday02/17/19, she had brief episode of "garbled" speech lasting few minutes and then was okay - daughter states similar to her " chronic recurrent TIA" syndrome. In the ED, CT Head showed no CVA, Abdomen xray and US showed no wound abscess. 1.5 cm abdominal wound dehiscence -surgical consult Dr. Velasco for management -obtain [facility] operative notes and discharge summary -U/S: no abscess - cleansed with H2O2 -chelsea removed, culture obtained. -no signs of cellulitis on no antibiotics Post-op Debility -PT/OT/ARU consulted -activity per surgery Anemia - post op from GI blood loss - no need for transfusion at this time. - monitor with serial hgb HTN - stable - daughter has been holding nifedipine because BP not elevated. Will not restart med and monitor History of CHF - currently euvolemic. no signs of CHF. Hold lasix. saline lock IVF History of CKD IV - followed by nephrology in [place]. monitor. hold nephrotoxic agents. lasix on hold. saline lock IVF No current signs of JHOANA Diabetes - on chronic insulin therapy with hypoglcyemia - daughter has decreased levemir at home from 30 to 15 units with improvement of hypoglcyemia and stabilization of blood sugar. continue to monitor. HgA1c Elevated lipase due to recent bowel surgery Colon Cancer stage II - will need surgical follow up in [place] in 2-4 weeks -obtain pathology report -obtain records from [place] Plan / VTE VTE Prophylaxis Ordered?: Yes (renal dose enoxaprin) VS, I&O, 24H, Fishbone Vital Signs/I&O Vital Signs Date Time Temp Pulse Resp B/P (MAP) Pulse Ox O2 Delivery O2 Flow Rate FiO2 02/20/19 06:00 97.5 66 18 152/70 (97) 93 02/19/19 11:38 Room Air I&O- Last 24 Hours up to 6 AM 02/20/19 06:00 Intake Total 1650 ml Output Total 0 ml Balance 1650 ml Laboratory Data 24H LABS Laboratory Tests 2 02/19/19 12:25: Immature Granulocyte % (Auto) 0.7, White Blood Count 8.7, Red Blood Count 3.26L, Hemoglobin 9.2L, Hematocrit 29.4L, Mean Corpuscular Volume 90.2, Mean C orpuscular Hemoglobin 28.2, Mean Corpuscular Hemoglobin Concent 31.3L, Red Cell Distribution Width 14.6H, Platelet Count 507H, Neutrophils (%) (Auto) 75.6H, Lymphocytes (%) (Auto) 9.9L, Monocytes (%) (Auto) 10.9H, Eosinophils (%) (Auto) 2.2, Basophils (%) (Auto) 0.7, Neutrophils # (Auto) 6.6, Lymphocytes # (Auto) 0.9L, Monocytes # (Auto) 1.0H, Eosinophils # (Auto) 0.2, Basophils # (Auto) 0.1, Nucleated Red Blood Cells % (auto) 0.0, Prothrombin Time 12.9, Prothromb Time International Ratio 1.00, Anion Gap 8, Glomerular Filtration Rate 41.5, Calcium Level 8.9, Aspartate Amino Transf (AST/SGOT) 20, Alanine Aminotransferase (ALT/SGPT) 18, Alkaline Phosphatase 68, Total Bilirubin 0.2, Direct Bilirubin 0.1, Total Creatine Kinase 24L, Creatine Kinase MB < 1.0, Creatine Kinase MB Relative Index 4.17H, Troponin I < 0.02, Total Protein 6.2L, Albumin 2.5L, Albumin/Globulin Ratio 0.68L, Lipase 687H 02/19/19 16:57: Bedside Glucose (Misc Panel) 155H 02/19/19 20:30: Bedside Glucose (Misc Panel) 110 02/20/19 05:40: Nucleated Red Blood Cells % (auto) 0.0, Anion Gap 5L, Glomerular Filtration Rate > 60.0, Calcium Level 8.6L, Estimated Mean Plasma Glucose 200H, Hemoglobin A1c 8.6, Blood Urea Nitrogen 11, Creatinine 0.94, Sodium Level 141, Potassium Level 4.0, Chloride Level 109H, Carbon Dioxide Level 27 CBC/BMP Laboratory Tests 02/19/19 12:25 Red Blood Count 3.26 L, Mean Corpuscular Volume 90.2, Mean Corpuscular H emoglobin 28.2, Mean Corpuscular Hemoglobin Concent 31.3 L, Red Cell Distribution Width 14.6 H, Neutrophils (%) (Auto) 75.6 H, Lymphocytes (%) (Auto) 9.9 L, Monocytes (%) (Auto) 10.9 H, Eosinophils (%) (Auto) 2.2, Basophils (%) (Auto) 0.7, Neutrophils # (Auto) 6.6, Lymphocytes # (Auto) 0.9 L, Monocytes # (Auto) 1.0 H, Eosinophils # (Auto) 0.2, Basophils # (Auto) 0.1 02/20/19 05:40 Red Blood Count 2.85 L, Mean Corpuscular Volume 89.5, Mean Corpuscular Hemoglobin 28.4, Mean Corpuscular Hemoglobin Concent 31.8 L, Red Cell Distribution Width 14.5, Calcium Level 8.6 L Microbiology Microbiology 02/19/19 Gram Stain - Final, Resulted 02/19/19 Wound Culture, Resulted Pending GWEN AGUILERA MD Feb 20, 2019 11:04
[2019-02-20 14:00] VITALS: BP 152/67
[2019-02-20] MEDS ORDERED: ACETAMINOPHEN TAB 650MG DOSE (2X325MG) PO PRN (14:30)
--- NOTE | 2019-02-20 15:25 | ECGEPIP ---
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
[2019-02-20 22:00] VITALS: BP 130/72
[2019-02-20] MEDS: LEVEMIR (INSULIN DETEMIR) 1 UNITS/0.01ML SC SCH (22:29)
--- NOTE | 2019-02-20 23:59 | CR ---
DATE OF CONSULTATION: 02/20/2019 BRIEF HISTORY OF PRESENT ILLNESS: The patient is an 83-year-old female who presents with drainage from her midline incision 2 weeks after having a colectomy in [place]. She has been weak and poor appetite, and presents to the hospital for failure to thrive at home. I am asked to evaluate her incision. Her past medical history is significant for a history of diabetes mellitus, history of congestive heart failure (CHF), history of chronic kidney disease, history of gastroesophageal reflux disease, history of hypothyroidism, hypertension and colon cancer. Medications include iron, Lasix, insulin, Basaglar KwikPen, Synthroid and nifedipine. PHYSICAL EXAM: Reveals a frail 83-year-old who looks stated age. HEENT is unremarkable. Neck: Supple without adenopathy. Lungs are clear anteriorly. Heart is regular. Abdomen is soft, nondistended, nontender. Her incision is open in the lower abdomen. It has been attempted to be brought together with Steri-Strips; however, some of these have come off. IMPRESSION AND PLAN: The patient has a superficial wound dehiscence. At this point, my recommendation is to start some dressing changes on her - I have ordered these, remove the rest of the chelsea, and will see how this works for her. She essentially has not developed very much granulation tissue on this incision, and thus, it is concerning that she may be someone who has some significant difficulties with healing overall. But once again, will see how her dressing changes go over the next several days.
[2019-02-21 06:00] VITALS: BP 136/71
[2019-02-21] MEDS: HumaLOG INSULIN (NovoLOG) PER UNIT SC SCH ×2 (07:30→12:13)
[2019-02-21] MEDS: ENOXAPARIN 30 MG/0.3 ML SYR (J1650) SC SCH ×2 (09:00→09:18)
--- NOTE | 2019-02-21 13:11 | IPNPDOC ---
Date Seen The patient was seen on 02/21/19. Progress Note SUBJECTIVE: no fever or chills overnight. decreased appetite. "I wasn't really much of an eater." no c/o pain. wet to dry dressing done per surgery recommendations and no binder needed when pt ambulates. still c/o weakness. no other issues per RN aside from pt's son requesting LOVENOX TO BE DISCONTINUED. Per son at the bedside, "YOU ARE NOT TO GIVE MY MOTHER ANYTHING UNLESS IT GOES THROUGH ME. THE SURGEONS IN [place] SENT HER HOME ON NO BLOOD THINNERS. THE MORE MEDICATIONS YOU GIVE, THE SICKER PEOPLE GET." Son refused to give permission to obtain medical records from [place] regarding his mother's diagnosis and medical history. "I WILL TALK TO MY SISTER, BUT YOU DO NOT HAVE MY PERMISSION TO TALK TO ANY OF HER DOCTORS. I DON'T WANT YOU MEDDLING WITH ANYTHING. SHE IS HERE FOR REHAB, AND NOTHING ELSE." Pt's son was adamant about no changes in medications, further testing, evaluations. Son insists that "CANCER IS NOT TO BE SAID IN THIS ROOM. YOU UNDERSTAND? HER SURGEON SAID HE TOOK IT ALL OUT. SHE DOES NOT HAVE CANCER." RN, Bhumi, was present while pt's son insisted on no Lovenox despite increased risk of DVT/PE in pt's with known malignancy. RN, Leah Espinoza, was present when son refused to give permission to obtain medical records from [place] regarding his mother's diagnosis and medical history. "I WILL TALK TO MY SISTER, BUT YOU DO NOT HAVE MY PERMISSION TO TALK TO ANY OF HER DOCTORS. I DON'T WANT YOU MEDDLING WITH ANYTHING. SHE IS HERE FOR REHAB, AND NOTHING ELSE." Pt's son was adamant about no changes in medications, further testing, evaluations. Son insists that "CANCER IS NOT TO BE SAID IN THIS ROOM. YOU UNDERSTAND? HER SURGEON SAID HE TOOK IT ALL OUT. SHE DOES NOT HAVE CANCER." OBJECTIVE: Physical Examination VITALS: Pls see below General Exam: Positive: Alert, Cooperative, No Acute Distress Eye Exam: Positive: PERRLA, Conjunctiva & lids normal, EOMI ENT Exam: Positive: Atraumatic, Mucous membr. moist/pink, Pharynx Normal, Tongue Midline Neck Exam: Positive: Supple, +2 carotid pulse wo bruit Chest Exam: Positive: Clear to auscultation, Normal air movement; Negative: Rales, Rhonchi, Wheezing Heart Exam: Positive: Rate Normal, Regular Rhythm (no murmur) Abdomen Exam: Positive: Normal bowel sounds, Soft (NT ND no palpable masses, mild tenderness reproducible over incision/maximilian), Other (maximilian to mid abdomen intact with 1.5 cm wound dehisence. ) Extremity Exam: Positive: Normal pulses; Negative: Clubbing, Cyanosis, Edema Skin Exam: Positive: Nl turgor and temperature, Other skin issue (abdomen wound dehisense without cellulitis) Neuro Exam: Positive: Normal Speech, Other (decreased central muscle/core muscle strength, assistance needed rolling over in bed/sitting up; proximal thigh and forearm muscles weak bilaterally) Psych Exam: Positive: Mental status NL, Mood NL, Oriented x 3 maximilian and abdomen skin cleansed with hydrogen peroxide. 18 maximilian removed with good wound approximated EXCEPT for 1.5 cm wound dehinsence from below umbilicus (maximilian not holding skin together). Steri strips placed above and below wound dehiscence. no abdomen erythema LABORATORY DATA, IMAGING STUDIES, MICROBIOLOGY: pls see below ABDOMEN US:Impression: Subcutaneous edema and minimal amount of subcutaneous stranding fluid without definable drainable collection/abscess. Assessment/Plan: 83 yo female who had colon resection 2 weeks ago in [place] for obstructing colon cancer brought into ED by family because of increasing weakness. Daughter states patient has been staying in bed except to get up for bathroom and to eat meals because "too weak". Patient states poor appetite. She states no nausea, no vomiting, some difficulty swallowing large pills and yesterday abdomen pain (relief with tylenol). States today abdomen pain is nagging, dull, achy and worse with moving in bed. Maximilian still in place and daughter noticed some drainage. Yesterday daytime had normal stool but Last night patient had watery diarrhea. Last antibiotic use post operatively 2-3 weeks ago. She has had no reoccurance of diarrhea today. Daughter states on tuesday02/17/19, she had brief episode of "garbled" speech lasting few minutes and then was okay - daughter states similar to her " chronic recurrent TIA" syndrome. In the ED, CT Head showed no CVA, Abdomen xray and US showed no wound abscess. 1.5 cm abdominal wound dehiscence -surgical consult Dr. Velasco for management -obtain [facility] operative notes and discharge summary -U/S: no abscess - cleansed with H2O2 -maximilian removed, culture obtained. -no signs of cellulitis on no antibiotics Post-op Debility -PT/OT/ARU consulted -activity per surgery Anemia - post op from GI blood loss - no need for transfusion at this time. - monitor with serial hgb HTN - stable - daughter has been holding nifedipine because BP not elevated. Will not restart med and monitor History of CHF - currently euvolemic. no signs of CHF. Hold lasix. saline lock IVF History of CKD IV - followed by nephrology in [place]. monitor. hold nephrotoxic agents. lasix on hold. saline lock IVF No current signs of JHOANA Diabetes - on chronic insulin therapy with hypoglcyemia - daughter has decreased levemir at home from 30 to 15 units with improvement of hypoglcyemia and stabilization of blood sugar. continue to monitor. HgA1c Elevated lipase due to recent bowel surgery Colon Cancer stage II - will need surgical follow up in [place] in 2-4 weeks -Per son at the bedside, "YOU ARE NOT TO GIVE MY MOTHER ANYTHING UNLESS IT GOES THROUGH ME. THE SURGEONS IN [place] SENT HER HOME ON NO BLOOD THINNERS. THE MORE MEDICATIONS YOU GIVE, THE SICKER PEOPLE GET." Son refused to give permission to obtain medical records from [place] regarding his mother's diagnosis and medical history. "I WILL TALK TO MY SISTER, BUT YOU DO NOT HAVE MY PERMISSION TO TALK TO ANY OF HER DOCTORS. I DON'T WANT YOU MEDDLING WITH ANYTHING. SHE IS HERE FOR REHAB, AND NOTHING ELSE." Pt's son was adamant about no changes in medications, further testing, evaluations. Son insists that "CANCER IS NOT TO BE SAID IN THIS ROOM. YOU UNDERSTAND? HER SURGEON SAID HE TOOK IT ALL OUT. SHE DOES NOT HAVE CANCER." -RN, Bhumi Enamorado , was present while pt's son insisted on no Lovenox despite increased risk of DVT/PE in pt's with known malignancy. "YOU ARE NOT TO GIVE MY MOTHER ANYTHING UNLESS IT GOES THROUGH ME. THE SURGEONS IN [place] SENT HER HOME ON NO BLOOD THINNERS. THE MORE MEDICATIONS YOU GIVE, THE SICKER PEOPLE GET." -RN, Leah Cruz, was present when son refused to give permission to obtain medical records from [place] regarding his mother's diagnosis and medical history. "I WILL TALK TO MY SISTER, BUT YOU DO NOT HAVE MY PERMISSION TO TALK TO ANY OF HER DOCTORS. I DON'T WANT YOU MEDDLING WITH ANYTHING. SHE IS HERE FOR REHAB, AND NOTHING ELSE." Pt's son was adamant about no changes in medications, further testing, evaluations. Son insists that "CANCER IS NOT TO BE SAID IN THIS ROOM. YOU UNDERSTAND? HER SURGEON SAID HE TOOK IT ALL OUT. SHE DOES NOT HAVE CANCER." Plan / VTE VTE Prophylaxis Ordered?: Yes (pt's HCP, son refused enoxaprin) VS, I&O, 24H, Fishbone Vital Signs/I&O Vital Signs Date Time Temp Pulse Resp B/P (MAP) Pulse Ox O2 Delivery O2 Flow Rate FiO2 02/21/19 06:00 97.6 70 16 136/71 (92) 97 02/19/19 11:38 Room Air I&O- Last 24 Hours up to 6 AM 02/21/19 06:00 Intake Total 900 ml Output Total 0 ml Balance 900 ml Laboratory Data 24H LABS Laboratory Tests 2 02/20/19 16:43: Bedside Glucose (Misc Panel) 215H 02/20/19 20:32: Bedside Glucose (Misc Panel) 174H 02/21/19 06:40: Bedside Glucose (Misc Panel) 44L 02/21/19 07:47: Bedside Glucose (Misc Panel) 121H 02/21/19 11:44: Bedside Glucose (Misc Panel) 201H Microbiology Microbiology 02/19/19 Gram Stain - Final, Resulted 02/19/19 Wound Culture - Preliminary, Resulted Proteus Mirabilis GWEN AGUILERA MD Feb 21, 2019 13:09
--- NOTE | 2019-02-21 16:51 | DS.PDOC ---
Discharge Summary General Date of Admission Feb 19, 2019 at 14:27 Date of Discharge February 21, 2019 Discharge Summary Inpatient Lead Atg Developer: General Surgery: Dr. Dewey Velasco Procedures 02/19/19: maximilian removal maximilian and abdomen skin cleansed with hydrogen peroxide. 18 maximilian removed with good wound approximated EXCEPT for 1.5 cm wound dehinsence from below umbilicus (maximilian not holding skin together). Steri strips placed above and below wound dehiscence. no abdomen erythema Discharged to: [facility] Rehab Discharge Diagnoses: Debility with proximal muscle weakness 1.5 cm abdominal surgical site wound dehiscence postop anemia HTN colon ca stage 2 with resection 01/2019 CKD 4 Hypothyroid Discharge Medications: pls see below Discharge instructions: wet to dry dressings per surgical recommendations. Outpt fu with colorectal surgery in [place] as previously scheduled. History of Presenting Illness: 83 yo female who had colon resection 2 weeks ago in [place] for obstructing colon cancer brought into ED by family because of increasing weakness. Daughter states patient has been staying in bed except to get up for bathroom and to eat meals because "too weak". Patient states poor appetite. She states no nausea, no vomiting, some difficulty swallowing large pills and yesterday abdomen pain (relief with tylenol). States today abdomen pain is nagging, dull, achy and worse with moving in bed. Maximilian still in place and daughter noticed some drainage. Yesterday daytime had normal stool but Last night patient had watery diarrhea. Last antibiotic use post operatively 2-3 weeks ago. She has had no reoccurance of diarrhea today. Daughter states on tuesday02/17/19, she had brief episode of "garbled" speech lasting few minutes and then was okay - daughter states similar to her " chronic recurrent TIA" syndrome. In the ED, CT Head showed no CVA, Abdomen xray and US showed no wound abscess. Hospital Course: Debility with proximal muscle weakness - post op (present on admission) -PT/OT ARU consult. -pt was transferred to [facility] Rehab wound dehiscence - abdomen - cleansed with H2O2 , maximilian removed -culture: proteus resistant to tigecycline. -no signs of cellulitis. -remained afebrile with no white count -NOT started on antibiotics -per General surgery: wet to dry dressings would be sufficient. no antibiotics -outpt fu with her [place] colorectal surgeon as previously scheduled Anemia - post op from GI blood loss - no need for transfusion at this time. - Hgb 8 - denies shortness of breath, chest pain, pressure, tightness, dizziness, or lightheadedness HTN - stable - daughter has been holding nifedipine because BP not elevated. History of CHF - currently euvolemic. -no signs of CHF. -Held lasix due to poor oral intake. - saline lock IVF History of CKD IV - followed by nephrology in [place]. - monitored with serial bmp - hold nephrotoxic agents. - lasix on hold due to poor oral intake and risk of dehydration. - appears euvolemic - saline lock IVF - No current signs of JHOANA Diabetes - on chronic insulin therapy with hypoglcyemia - daughter has decreased levemir at home from 30 to 15 units with improvement of hypoglcyemia and stabilization of blood sugar. - fingersticks for monitoring. - pt has had poor appetite Elevated lipase -due to recent bowel surgery Colon Cancer stage II - will need surgical follow up in [place] in 2-4 weeks DVT prophylaxis: -son , pt's HCP, refused Lovenox , despite risk of DVT, PE in a pt with h/o colon ca -son wanted compression stockings disposition: discharged to [facility] Rehab Discharge Physical Examination: Vitals: pls see below General Exam: Positive: Alert, Cooperative, No Acute Distress Eye Exam: Positive: PERRLA, Conjunctiva & lids normal, EOMI ENT Exam: Positive: Atraumatic, Mucous membr. moist/pink, Pharynx Normal, Ton grecia Midline Neck Exam: Positive: Supple, +2 carotid pulse wo bruit Chest Exam: Positive: Clear to auscultation, Normal air movement; Negative: Rales, Rhonchi, Wheezing Heart Exam: Positive: Rate Normal, Regular Rhythm (no murmur) Abdomen Exam: Positive: Normal bowel sounds, Soft (NT ND no palpable masses, mild tenderness reproducible over incision. 1.5 cm wound dehiscence without surrounding erythema or drainage. Extremity Exam: Positive: Normal pulses; Negative: Clubbing, Cyanosis, Edema Skin Exam: Positive: Nl turgor and temperature, Other skin issue (abdomen wound dehisense without cellulitis) Neuro Exam: Positive: Normal Speech, Other (decreased central muscle/core muscle strength, assistance needed rolling over in bed/sitting up; proximal th igh and forearm muscles weak bilaterally) Psych Exam: Positive: Mental status NL, Mood NL, Oriented x 3 Laboratory data, imaging studies, microbiology: pls see below ABDOMEN US:Impression: Subcutaneous edema and minimal amount of subcutaneous stranding fluid without definable drainable collection/abscess. Time spent on hospital discharge: 32 minutes. Vital Signs/I&Os Vital Signs Date Time Temp Pulse Resp B/P (MAP) Pulse Ox O2 Delivery O2 Flow Rate FiO2 02/21/19 06:00 97.6 70 16 136/71 (92) 97 02/19/19 11:38 Room Air I&O- Last 24 Hours up to 6 AM 02/21/19 06:00 Intake Total 900 ml Output Total 0 ml Balance 900 ml Laboratory Data Labs 24H Laboratory Tests 2 02/20/19 16:43: Bedside Glucose (Misc Panel) 215H 02/20/19 20:32: Bedside Glucose (Misc Panel) 174H 02/21/19 06:40: Bedside Glucose (Misc Panel) 44L 02/21/19 07:47: Bedside Glucose (Misc Panel) 121H 02/21/19 11:44: Bedside Glucose (Misc Panel) 201H FSBS Laboratory Tests Test 02/20/19 16:43 02/20/19 20:32 02/21/19 06:40 02/21/19 07:47 Range/Units Bedside Glucose (Misc Panel) 215 174 44 121 83-110 MG/DL Test 02/21/19 11:44 Range/Units Bedside Glucose (Misc Panel) 201 83-110 MG/DL Microbiology Microbiology 02/19/19 Gram Stain - Final, Resulted 02/19/19 Wound Culture - Preliminary, Resulted Proteus Mirabilis Discharge Medications Scheduled Ferrous Gluconate (Ferrous Gluconate) 324 Mg Tablet, 324 MG PO DAILY, (Reported) Furosemide (Lasix) 40 Mg Tab, 40 MG PO DAILY, (Reported) Insulin Aspart (Novolog Flexpen) 100 Unit/Ml Inj, 1 DOSE SC AC, (Reported) PER SLIDING SCALE Insulin Glargine,Hum.rec.anlog (Basaglar Kwikpen U-100) 100 Unit/1 Ml Insuln.pen, 30 UNIT SC QHS, (Reported) Levothyroxine Sodium (Levothyroxine Sodium) 150 Mcg Tablet, 150 MCG PO QAM, (Reported) Nifedipine (Nifedipine ER) 30 Mg Tablet.er, 30 MG PO DAILY, (Reported) Scheduled PRN Acetaminophen (Acetaminophen) 325 Mg Tablet, 650 MG PO Q4H PRN for PAIN, (Reported) Allergies Coded Allergies: Sulfa (Sulfonamide Antibiotics) (Verified Allergy, Intermediate, HIVES, 02/19/19) lisinopril (Verified Adverse Reaction, Unknown, DIZZINESS, 02/19/19) GWEN AGUILERA MD Feb 21, 2019 16:51
== END 2019-02-21 14:14 | DRG 920 ==
LOC: M ED 11:38 → M ED INP 14:27 → M MSPAV 16:35
PROVIDERS: ADMIT Family Medicine; ATTEND General Practice
DX: T81.31XA Disruption of external operation (surgical) wound, not elsewhere classified, initial encounter (principal); D62 Acute posthemorrhagic anemia; N18.4 Chronic kidney disease, stage 4 (severe); I13.0 Hypertensive heart and chronic kidney disease with heart failure and stage 1 through stage 4 chronic kidney disease, or unspecified chronic kidney disease; E03.9 Hypothyroidism, unspecified; Z85.038 Personal history of other malignant neoplasm of large intestine; I50.9 Heart failure, unspecified; E11.9 Type 2 diabetes mellitus without complications; Z79.4 Long term (current) use of insulin; Z79.899 Other long term (current) drug therapy; Z88.2 Allergy status to sulfonamides; Z88.8 Allergy status to other drugs, medicaments and biological substances; K21.9 Gastro-esophageal reflux disease without esophagitis; Y83.8 Other surgical procedures as the cause of abnormal reaction of the patient, or of later complication, without mention of misadventure at the time of the procedure

== ENCOUNTER → 2019-02-27 | Outpatient (REF) ==
[~2019-02-27] MED LIST changes: +FERR32TA PO; +LEVO150T7 PO; +NIFE30TA50 PO
[2019-02-27 09:41] LABS: HEMATOCRIT 29.3 % (36.0-47.0); HEMOGLOBIN 9.1 g/dl (12.0-15.5); MEAN CORPUSCULAR HGB CONC 31.1 g/dl (32.0-36.5); MEAN CORPUSCULAR VOLUME 90.2 fl (80.0-96.0); PLATELET COUNT, AUTOMATED 411 10^3/uL (150-450); RED BLOOD COUNT 3.25 10^6/uL (4.00-5.40); WHITE BLOOD COUNT 7.3 10^3/uL (4.0-10.0)
[2019-02-27 10:25] LABS: CALCIUM LEVEL 9.2 MG/DL (8.8-10.2); CREATININE FOR GFR 1.12 MG/DL (0.55-1.30); GLOMERULAR FILTRATION RATE 49.3 (>32); POTASSIUM SERUM 4.9 MEQ/L (3.5-5.1)
== END ==
PROVIDERS: ATTEND Internal Medicine
DX: C18.9 Malignant neoplasm of colon, unspecified (principal); N18.4 Chronic kidney disease, stage 4 (severe); D64.9 Anemia, unspecified; I10 Essential (primary) hypertension

== ENCOUNTER → 2019-03-06 | Outpatient (REF) | payer MEDICARE ==
[2019-03-06 09:08] LABS: HEMATOCRIT 30.4 % (36.0-47.0); HEMOGLOBIN 9.5 g/dl (12.0-15.5); MEAN CORPUSCULAR HEMOGLOBIN 28.2 pg (27.0-33.0); MEAN CORPUSCULAR HGB CONC 31.3 g/dl (32.0-36.5); MEAN CORPUSCULAR VOLUME 90.2 fl (80.0-96.0); PLATELET COUNT, AUTOMATED 371 10^3/uL (150-450); RED BLOOD COUNT 3.37 10^6/uL (4.00-5.40); WHITE BLOOD COUNT 9.2 10^3/uL (4.0-10.0)
[2019-03-06 09:28] LABS: CALCIUM LEVEL 9.3 MG/DL (8.8-10.2); CREATININE FOR GFR 1.31 MG/DL (0.55-1.30); GLOMERULAR FILTRATION RATE 41.2 (>32); POTASSIUM SERUM 4.1 MEQ/L (3.5-5.1)
== END ==
PROVIDERS: ATTEND Internal Medicine
DX: C18.9 Malignant neoplasm of colon, unspecified (principal); D64.9 Anemia, unspecified

== ENCOUNTER → 2019-04-05 | Outpatient (REF) | payer MEDICARE ==
[2019-04-05 13:30] LABS: BASO # 0.1 10^3/uL (0.0-0.2); BASO % 0.6 % (0.0-1.0); EOS # 0.2 10^3/uL (0.0-0.50); EOS % 1.8 % (0.0-3.0); HEMATOCRIT 33.2 % (36.0-47.0); HEMOGLOBIN 10.5 g/dl (12.0-15.5); LYMPH % 10.2 % (24.0-44.0); MEAN CORPUSCULAR HEMOGLOBIN 29.1 pg (27.0-33.0); MEAN CORPUSCULAR HGB CONC 31.6 g/dl (32.0-36.5); MONO # 1.1 10^3/uL (0.0-0.8); MONO % 11.4 % (0.0-5.0); NEUTROPHILS # 7.5 10^3/uL (1.8-7.7); NEUTROPHILS % 75.5 % (36.0-66.0); PLATELET COUNT, AUTOMATED 332 10^3/uL (150-450); RED BLOOD COUNT 3.61 10^6/uL (4.00-5.40); WHITE BLOOD COUNT 9.9 10^3/uL (4.0-10.0)
[2019-04-05 13:37] LABS: ALBUMIN 3.5 GM/DL (3.2-5.2); BILIRUBIN,TOTAL 0.5 MG/DL (0.2-1.0); CALCIUM LEVEL 9.3 MG/DL (8.8-10.2); CREATININE FOR GFR 1.12 MG/DL (0.55-1.30); GLOMERULAR FILTRATION RATE 49.3 (>32); PERCENT SATURATION 18.2 % (13.2-45.0); POTASSIUM SERUM 4.5 MEQ/L (3.5-5.1); THYROID STIMULATING HORMONE 3.15 uIU/ML (0.358-3.740); TOTAL PROTEIN 6.6 GM/DL (6.4-8.2)
== END ==
LOC: M LABDRAW1 10:16
PROVIDERS: ATTEND Physician Assistant
DX: N18.4 Chronic kidney disease, stage 4 (severe) (principal); D63.1 Anemia in chronic kidney disease; E11.21 Type 2 diabetes mellitus with diabetic nephropathy; E03.9 Hypothyroidism, unspecified